=== PATIENT | female | born 1975 | race Caucasian/White ===

== ENCOUNTER 2017-06-03 16:10 | Emergency (ER) | payer OTHER ==
[~2017-06-03] VITALS: Ht 167.6 cm; Wt 107.4 kg
[~2017-06-03 16:10] MED LIST: ASPIR-LOW81 MG PO; BENADRYL ALLERG25 MG PO; BUTALB-ACETAMI1 EAC2 PO; FLAXSEED OIL1000 M4 PO; HYDROCHLOROTHIA25 MG PO; K-DUR20 MEQ PO; LIPITOR20 MG PO; LISINOPRIL20 MG PO; MOTRIN800 MG PO; MULTI-B-PLUS1 EACH PO; MULTIVITAMIN1 EAC2 PO; Motrin PO; NAPROSYN500 MG PO; NEXIUM20 MG PO; PERCOCET 5/31 TABLET PO; PRILOSEC OTC20 MG PO; PROBIOTIC1 EAC2 PO; TENSION HEADAC1 EACH; TOPAMAX50 MG PO; TOPIRAMATE25 MG PO; VALIUM2 MG PO; VITAMIN B-250 MG PO; VITAMIN D1000 UNIT PO; ZOFRAN4 MG PO; ZOLOFT50 MG PO
[2017-06-03] MEDS ORDERED: ANTIVERT25 MG PO (18:32)
[2017-06-03 18:35] VITALS: BP 164/105
== END 2017-06-03 18:35 | disposition home or self-care (01) ==
LOC: EME 16:10
DX: H66.92 Otitis media, unspecified, left ear (principal); H92.01 Otalgia, right ear; R42 Dizziness and giddiness; R11.0 Nausea; Z87.442 Personal history of urinary calculi; Z87.891 Personal history of nicotine dependence
CPT/HCPCS: 99281; 99284

== ENCOUNTER 2017-12-23 15:43 | Emergency (ER) | payer OTHER ==
[~2017-12-23] VITALS: Ht 167.6 cm; Wt 112.9 kg
[~2017-12-23 15:43] MED LIST changes: +ANTIVERT25 MG PO
[2017-12-23 16:27] LABS: HEMOGLOBIN 14.2 G/DL (11.9-15.5); MCH 29.3 PG (29.0-34.0); MCHC 34.6 G/DL (30.0-36.0); MCV 84.7 FL (83-99); PLATELET COUNT 267 K/uL (156-360); RBC DIS.WIDTH-CV 13.8 % (11.8-14.6); RBC DIS.WIDTH-SD 42.9 % (39-53); RED BLOOD COUNT 4.84 M/uL (3.80-5.20); WHITE BLOOD COUNT 9.4 K/uL (4.1-10.2)
[2017-12-23 16:40] LABS: ALBUMIN 4.5 g/dL (3.2-4.8); CHLORIDE 108 mEq/L (99-109); POTASSIUM 4.5 mEq/L (3.7-5.4); SODIUM 143 mEq/L (136-147)
[2017-12-23 16:42] LABS: GLUCOSE 81 mg/dL (70-99); TOTAL PROTEIN 7.5 g/dL (6.4-8.3)
[2017-12-23 16:44] LABS: TOTAL BILIRUBIN 0.6 mg/dL (0.0-1.0)
[2017-12-23 16:46] LABS: ALKALINE PHOSPHATASE 63 IU/L (3-129); CREATININE 0.8 mg/dL (0.6-1.3); GFR ESTIMATE (CALCULATED) > 59 mL/min/
[2017-12-23 16:47] LABS: UREA NITROGEN (BUN) 10 mg/dL (9-23)
[2017-12-23 16:48] LABS: AST (GOT) 46 IU/L (2-34)
[2017-12-23 16:49] LABS: ALT (GPT) 57 IU/L (3-49)
[2017-12-23 16:55] LABS: QUANTITATIVE HCG < 4.0 MIU/ML
[2017-12-23 16:59] LABS: APPEARANCE CLOUDY ((CLEAR)); BILIRUBIN NEGATIVE; BLOOD LARGE; COLOR RED ((YELLOW)); GLUCOSE (STRIP) NEGATIVE; KETONES NEGATIVE; LEUKOCYTES NEGATIVE; NITRITE NEGATIVE; PROTEIN (STRIP) 100; SPECIFIC GRAVITY 1.025 (1.000-1.030); UROBILINOGEN 0.2 MG/DL (0.2-1.0)
[2017-12-23 17:03] LABS: RED BLOOD CELLS TNTC /HPF (0-5); UCUL ADDED? YES
[2017-12-23 19:14] LABS: HEMATOCRIT 41.1 % (36.0-46.0); HEMOGLOBIN 14.4 G/DL (11.9-15.5); MCH 29.8 PG (29.0-34.0); MCV 84.9 FL (83-99); PLATELET COUNT 285 K/uL (156-360); RED BLOOD COUNT 4.84 M/uL (3.80-5.20)
[2017-12-23 19:26] LABS: LIPASE 37 U/L (1.0-51.0)
[2017-12-23 20:34] VITALS: BP 145/96
== END 2017-12-23 20:35 | disposition home or self-care (01) ==
LOC: EME 15:43
PROVIDERS: Physician Assistant
DX: D25.9 Leiomyoma of uterus, unspecified (principal); R11.0 Nausea; R42 Dizziness and giddiness; Z87.442 Personal history of urinary calculi; Z90.49 Acquired absence of other specified parts of digestive tract; Z88.2 Allergy status to sulfonamides; Z87.891 Personal history of nicotine dependence
CPT/HCPCS: 80053; 81003; 83690; 84702; 85027; 87086; 99281; 99284; J1885; J2405; J7030

== ENCOUNTER 2017-12-30 06:43 | Day surgery (SDC) | payer OTHER ==
[~2017-12-30] VITALS: Ht 167.6 cm; Wt 111.1 kg
[~2017-12-30 06:43] MED LIST changes: +ALLEGRA ALLERG180 MG PO; +FLONASE ALLERG9.9 ML BOTH NARES; +PROTONIX40 MG PO; +PROVERA,CYCRIN10 MG PO; +WELLBUTRIN SR100 MG PO; +ZESTRIL2.5 MG PO
[2017-12-30 13:56] VITALS: BP 127/75
[2017-12-30 21:02] VITALS: BP 115/76
[2017-12-31 00:24] VITALS: BP 131/79
[2017-12-31 04:15] VITALS: BP 141/91
[2017-12-31 07:10] LABS: BASOPHIL (%) 0.2 % (0-1); EOSINOPHIL (%) 0.1 % (0-5); HEMATOCRIT 36.2 % (36.0-46.0); HEMOGLOBIN 12.6 G/DL (11.9-15.5); IMMATURE GRANULOCYTE (%) 0.5 % (0.0-0.7); LYMPHOCYTE (%) 20.9 % (15-42); LYMPHOCYTE COUNT 2.8 K/uL (1.0-2.8); MCH 29.3 PG (29.0-34.0); MCHC 34.8 G/DL (30.0-36.0); MCV 84.2 FL (83-99); MONOCYTE (%) 7.1 % (3-12); NEUTROPHIL (%) 71.2 % (45-76); NEUTROPHIL COUNT 9.6 K/uL (1.8-6.4); PLATELET COUNT 244 K/uL (156-360); RBC DIS.WIDTH-CV 13.8 % (11.8-14.6); RBC DIS.WIDTH-SD 42.5 % (39-53); WHITE BLOOD COUNT 13.5 K/uL (4.1-10.2)
[2017-12-31 07:59] VITALS: BP 137/89
[2017-12-31] MEDS ORDERED: HYDROCODON-ACE1 EAC7 PO (09:35)
[2017-12-31] MEDS ORDERED: MOTRIN600 MG PO (09:35)
== END 2017-12-31 11:13 | disposition home or self-care (01) ==
LOC: SDC → 2SOUTH 12:21 → 2EAST 12:21 → ENRESERV 12:30 → 2EAST 14:02 → SDC 14:52 → 2EAST 12-31 11:13
PROVIDERS: Obstetrics & Gynecology
DX: C54.1 Malignant neoplasm of endometrium (principal); N84.0 Polyp of corpus uteri; E28.2 Polycystic ovarian syndrome; E78.1 Pure hyperglyceridemia; I10 Essential (primary) hypertension; Z80.3 Family history of malignant neoplasm of breast; Z87.891 Personal history of nicotine dependence; Z88.2 Allergy status to sulfonamides
CPT/HCPCS: 84702; 85025; 86850; 86900; 86901; 88309; G0378; J0131; J1100; J1170; J1580; J1885; J2250; J2405; J2710; J2765; J3010; J7050; J7120; S0020

== ENCOUNTER 2018-04-30 17:28 | Emergency (ER) | payer OTHER ==
[~2018-04-30] VITALS: Ht 167.6 cm; Wt 110.0 kg
[~2018-04-30 17:28] MED LIST changes: +HYDROCODON-ACE1 EAC7 PO; +MOTRIN600 MG PO
[2018-04-30 17:58] LABS: BASOPHIL (%) 0.6 % (0-1); BASOPHIL COUNT 0.1 K/uL (0-0.1); EOSINOPHIL (%) 0.9 % (0-5); EOSINOPHIL COUNT 0.1 K/uL (0-0.3); HEMATOCRIT 43.4 % (36.0-46.0); HEMOGLOBIN 14.7 G/DL (11.9-15.5); LYMPHOCYTE (%) 20.1 % (15-42); MCH 27.4 PG (29.0-34.0); MCHC 33.9 G/DL (30.0-36.0); MONOCYTE (%) 5.4 % (3-12); MONOCYTE COUNT 0.6 K/uL (0-0.8); NEUTROPHIL COUNT 7.3 K/uL (1.8-6.4); PLATELET COUNT 258 K/uL (156-360); RBC DIS.WIDTH-CV 14.1 % (11.8-14.6); RED BLOOD COUNT 5.36 M/uL (3.80-5.20); WHITE BLOOD COUNT 10.2 K/uL (4.1-10.2)
[2018-04-30 18:04] LABS: INTER. NORMALIZED RATIO 1.1
[2018-04-30 18:06] LABS: PTT 28.7 SEC (25-37)
[2018-04-30 18:10] LABS: AMYLASE 45 IU/L (1-118); CHLORIDE 107 mEq/L (99-109); POTASSIUM 3.9 mEq/L (3.7-5.4); SODIUM 139 mEq/L (136-147)
[2018-04-30 18:12] LABS: GLUCOSE 112 mg/dL (70-99)
[2018-04-30 18:15] LABS: SERUM ETHYL ALCOHOL < 10 mg/dL
[2018-04-30 18:16] LABS: CREATININE 0.8 mg/dL (0.6-1.3); GFR ESTIMATE (CALCULATED) > 59 mL/min/
[2018-04-30 18:17] LABS: UREA NITROGEN (BUN) 7 mg/dL (9-23)
[2018-04-30 18:19] LABS: LIPASE 26 U/L (1.0-51.0)
[2018-04-30 18:25] LABS: QUANTITATIVE HCG < 4.0 MIU/ML
[2018-04-30 18:32] LABS: TROP-I INTERPRETATION NEGATIVE; TROPONIN-I < 0.01 ng/mL (0.0-0.30)
[2018-04-30 19:55] LABS: APPEARANCE CLEAR ((CLEAR)); BILIRUBIN NEGATIVE; BLOOD NEGATIVE; COLOR YELLOW ((YELLOW)); GLUCOSE (STRIP) NEGATIVE; KETONES NEGATIVE; LEUKOCYTES NEGATIVE; NITRITE NEGATIVE; PROTEIN (STRIP) NEGATIVE; UCUL ADDED? NO; UROBILINOGEN 0.2 MG/DL (0.2-1.0)
[2018-04-30 20:02] LABS: AMPHETAMINE NEGATIVE (500 ng/mL); BARBITURATES NEGATIVE (200 ng/mL); BENZODIAZEPINES NEGATIVE (150 ng/mL); BUPRENORPHINE NEGATIVE (10 ng/mL); COCAINE NEGATIVE (150 ng/mL); METHADONE NEGATIVE (200 ng/mL); METHAMPHETAMINE NEGATIVE (500 ng/mL); OPIATES (MORPHINE) NEGATIVE (100 ng/mL); OXYCODONE PRESUMPTIVE POSITIVE (100 ng/mL); PHENCYCLIDINE NEGATIVE (25 ng/mL); PROPOXYPHENE NEGATIVE (300 ng/mL); THC CANNABINOIDS NEGATIVE (50 ng/mL); TRICYCLIC ANTIDEPRESSANTS NEGATIVE (300 ng/mL)
[2018-04-30 20:41] VITALS: BP 142/90
== END 2018-04-30 20:41 | disposition home or self-care (01) ==
LOC: EME 17:28
PROVIDERS: Emergency Medicine
DX: G43.909 Migraine, unspecified, not intractable, without status migrainosus (principal); E86.0 Dehydration; Z87.442 Personal history of urinary calculi; Z87.891 Personal history of nicotine dependence; Z90.49 Acquired absence of other specified parts of digestive tract; Z88.2 Allergy status to sulfonamides; Z88.1 Allergy status to other antibiotic agents
CPT/HCPCS: 70450; 71046; 80048; 81003; 82150; 83690; 84484; 84702; 85025; 85027; 85610; 85730; 86850; 86900; 86901; 93005; 99281; 99285; G0480; J1200; J1885; J2765; J7030